=== PATIENT | female | born 2000 | race Caucasian/White ===

== ENCOUNTER 2022-09-10 17:59 | Emergency (ER) | payer OTHER ==
[~2022-09-10] VITALS: Ht 172.7 cm; Wt 58.1 kg
[2022-09-10 18:13] VITALS: BP 116/65
[2022-09-10] MEDS ORDERED: FAMOTIDINE 20 MG TAB PO ONE (18:30)
[2022-09-10] MEDS ORDERED: ALUMINUM HYD/MAG/SIMETHICONE 30 ML UDC PO ONE (18:30)
[2022-09-10] MEDS ORDERED: ONDANSETRON 4 MG ODT PO ONE (18:30)
[2022-09-10] MEDS ORDERED: ACETAMINOPHEN 325 MG TAB PO ONE (19:00)
[2022-09-10] MEDS ORDERED: FAMO-347 PO (19:18)
[2022-09-10] MEDS ORDERED: ONDA-188 SL (19:18)
[2022-09-10] MEDS ORDERED: LOPE1TAB14 PO (19:18)
[2022-09-10 19:20] VITALS: BP 116/65
--- NOTE | 2022-09-10 19:20 | NUR ---
Patient discharged with v/s stable. Written and verbal after care instructions given and explained. Patient alert, oriented and verbalized understanding of instructions. Ambulatory with steady gait. All questions addressed prior to discharge. ID band removed. Patient advised to follow up with PMD. Rx of famotidine,zofran odt, loperamide given. Patient educated on indication of medication including possible reaction and side effects. Opportunity to ask questions provided and answered.
== END 2022-09-10 19:20 | disposition home or self-care (01) ==
LOC: MED 17:59
DX: R11.2 Nausea with vomiting, unspecified (principal); R19.7 Diarrhea, unspecified; R10.13 Epigastric pain; Z79.899 Other long term (current) drug therapy
CPT/HCPCS: 81025; 99284; Q0162